=== PATIENT | female | born 1990 | race Asian ===

== ENCOUNTER 2021-09-05 01:50 | Inpatient (IN) ==
[2021-09-05] MEDS ORDERED: OXYTOCIN 30 UNITS/500 ML BAG IV PRN ×2 (04:33→23:24)
--- NOTE | 2021-09-05 04:37 | History & Physical Report ---
Date of Service September 05, 2021 Assessment & Plan (1) Insulin controlled gestational diabetes mellitus (GDM) during : (2) PROM (premature rupture of membranes): (3) with 38 completed weeks gestation: Plan: prom confirmed. Discussed expectant mangement vs. pitocin. cierra too frequently for cytotec. gbs neg. Plan pitocin, epidural on demand. Check sugars hourly for goal of 70-120. Fetus category one. Anticipate . History of Present Illness Chief Complaint: prom Primary Care Provider: NO PCP Patient is a 30yoIf, with iup at 38 4/7 weeks who presents to labor and delivery with c/o lof and woke up wet at 12:30. Feels her belly tightening but not painful. no vb. +fm. US at 36 weeks efw 29%, AC 33%. Patient is gdm on insulin. Last took insulin at 8pm. and Delivery Plans GDM on insulin *Wkly NSTs @32wks and Twice wkly @36wks *Serial growth US @28wks *Deliver by [facility] - IOL scheduled 09/11 flu shot 05/02/21- HK moderna x 2--last in october OB Labs: Blood Type O Positive 02/07/21 Antibody Screen NEGATIVE 02/07/21 Hemoglobin 10.9 g/dL (12.0-16.0) L 06/27/21 Hematocrit 32.7 % (37-47) L 06/27/21 Mean Corpuscular Volume 92.3 fL (80-100) 02/07/21 Platelet Count 303 K/uL (130-400) 02/07/21 Rubella IgG Antibody Immune (Immune) 02/07/21 Rapid Plasma Reagin Nonreactive (Nonreactive) 02/07/21 Hepatitis B Surface Antigen Neg (Neg) 02/07/21 HIV (1&2) Ab and P24 Ag, 4th Gener Neg (Neg) 02/07/21 Glucose 1 Hour 50 gm Load 153 mg/dl (70-130) H 04/04/21 OB Optional Labs: Chlamydia trachomatis RNA NOT DETECTED (NOT DETECTED) 02/07/21 Neisseria gonorrhoeae RNA NOT DETECTED (NOT DETECTED) 02/07/21 Labs Reviewed: cf/sma neg declines genetic screening [place] Allergies Allergy/AdvReac Type Severity Reaction Status Date / Time No Known Allergies Allergy Verified 08/30/21 10:20 Home Medications Medication Instructions Recorded Confirmed Type cholecalciferol (vitamin D3) PO 01/31/21 08/30/21 History mecobalamin (vitamin B12) PO 01/31/21 08/30/21 History prenat.vits,rocco,tiu-xipb-edsuy PO 01/31/21 08/30/21 History acetone (urine) test (Ketone Urine #50 ea 05/10/21 08/30/21 Rx Test) blood sugar diagnostic (OneTouch #150 ea 05/10/21 08/30/21 Rx Verio test strips) blood-glucose meter (OneTouch #1 ea 05/10/21 08/30/21 Rx Verio Flex meter) lancets 33 gauge (OneTouch Delica #150 ea 05/10/21 08/30/21 Rx Plus Lancet) insulin lispro 100 unit/mL 5 unit SUBCUT BID #15 ml 05/15/21 08/30/21 Rx subcutaneous pen (Humalog KwikPen (U-100) Insulin) pen needle, diabetic 32 gauge x #100 ea 05/15/21 08/30/21 Rx 5/32" (BD Ultra-Fine Codie Pen Needle) breast pump #1 ea 06/27/21 08/30/21 Rx breast pump #1 ea 06/27/21 08/30/21 Rx Patient History Surgical History H/O neck surgery Family History Mother Diabetes Benign-appearing endometrial cells on cervical Pap smear benign tumor on cervix per patient Father Diabetes Grandmother (Maternal) Brain tumor Denies family history of Ovarian cancer Prostate cancer Breast cancer Colorectal cancer Social History Smoking Status: Never smoker Second Hand Exposure: No; Hx Alcohol Use: No Hx Substance Use: No Preferred Language: Turkish Communication Ability: Effective Visual Impairment: No Limitations Hearing Ability: Normal 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 Beliefs That Will Affect Care: None marital status: marital status details: Frantz Napier (34) Current Living Situation: Spouse Current Living Situation Comment: lives with , no pets current occupational status: unemployed current occupation: student [employer] Feels Safe at Home: Yes Safety Concerns: Feels Safe At This Time OB History g1--present [employer] History noncontributory Physical Exam Constitutional: WD/WN, vitals as above Cardiovascular: Extremities: no calf tenderness and no edema Gastrointestinal (Abdomen): soft, nt, nd, gravid Psychiatric: A+Ox3, euthymic affect Genitourinary: sse--slight clear fluid, did not fern walked for an hour, notes continued leaking and has blood tinged soaked pad cx--2/50/-2 toco--q3-5min efm--130s with mod variability, accels to 160s, no decels Results & Data ([facility]) Vital Signs (Past 12 Hours) Vital Signs Temp Pulse Resp BP 09/05/21 03:09 37.0 C 16 09/05/21 02:20 37 C 77 109/74 09/05/21 02:10 77 109/74 Coding Level of Care Code None Diagnoses Insulin controlled gestational diabetes mellitus (GDM) during O24.414 PROM (premature rupture of membranes) O42.90 with 38 completed weeks gestation Z3A.38
[2021-09-05 05:08] LABS: Hematocrit (blood only) 36.8 % (37-47); Hemoglobin 12.2 g/dL (12.0-16.0); Mean Corpuscular Hemoglobin 30.3 pg (25-34); Mean Corpuscular Hgb Conc 33.2 g/dL (32-36); Mean Corpuscular Volume 91.3 fL (80-100); Platelet Count 208 K/uL (130-400); RDW Coefficient of Variation 13.4 % (11.5-14.5); RDW Standard Deviation 44.4 fL (36.4-46.3); Red Blood Count 4.03 M/uL (4.2-5.4); White Blood Count 12.73 K/uL (4.8-10.8)
[2021-09-05] MEDS: LACTATED RINGER'S 1,000 ML IV PRN ×3 (06:24→16:47)
[2021-09-05] MEDS: OXYTOCIN 30 UNITS/500 ML BAG IV PRN ×2 (06:25→22:42)
[2021-09-05] MEDS ORDERED: fentaNYL citrate 100 MCG/2 ML VIAL ONE (08:41)
[2021-09-05] MEDS ORDERED: BUPIVACAINE 0.25% 30 ML VIAL ONE (08:41)
[2021-09-05] MEDS ORDERED: ePHEDrine sulfate 50 MG/ML AMP ONE (08:41)
[2021-09-05] MEDS ORDERED: SODIUM CHLORIDE 0.9% INJ 10 ML VIAL ONE (08:41)
[2021-09-05] MEDS ORDERED: fentaNYL 2MCG/ML ROPIVACAINE 1.25MG/ML 100 ML BAG EPI ONE (08:42)
--- NOTE | 2021-09-05 09:02 | Anesthesiology Consultation ---
Date of Service September 05, 2021 Assessment & Plan (1) Encounter for pre-operative examination: Chart Review Chart Review: Acceptable Risk for Surgery and Patient NOT seen in Pre Admission Testing Consults Requested none History Height/Weight Weight: 60.328 kg Allergies Allergy/AdvReac Type Severity Reaction Status Date / Time No Known Allergies Allergy Verified 08/30/21 10:20 Medications Home Medications Medication Instructions Recorded Confirmed Last Taken cholecalciferol (vitamin D3) PO 01/31/21 08/30/21 09/04/21 20:00 mecobalamin (vitamin B12) PO 01/31/21 08/30/21 09/04/21 20:00 prenat.vits,rocco,ftl-ivxl-pcsrn PO 01/31/21 08/30/21 09/04/21 20:00 acetone (urine) test (Ketone Urine #50 ea 05/10/21 08/30/21 Unknown Test) blood sugar diagnostic (OneTouch #150 ea 05/10/21 08/30/21 Unknown Verio test strips) blood-glucose meter (OneTouch #1 ea 05/10/21 08/30/21 Unknown Verio Flex meter) lancets 33 gauge (OneTouch Delica #150 ea 05/10/21 08/30/21 Unknown Plus Lancet) insulin lispro 100 unit/mL 5 unit SUBCUT BID #15 ml 05/15/21 08/30/21 09/04/21 20:00 subcutaneous pen (Humalog KwikPen (U-100) Insulin) pen needle, diabetic 32 gauge x #100 ea 05/15/21 08/30/21 Unknown 5/32" (BD Ultra-Fine Codie Pen Needle) breast pump #1 ea 06/27/21 08/30/21 Unknown breast pump #1 ea 06/27/21 08/30/21 Unknown Active Medications Generic Name Dose Route Start Last Admin Trade Name Freq PRN Reason Stop Dose Admin Lactated Ringer's 1,000 mls @ 125 mls/hr 09/05/21 04:33 09/05/21 08:39 Lr IV 09/07/21 04:32 999 mls/hr .Q8H PRN Infusion L&D Protocol Protocol Oxytocin 30 units in 500 mls @ 7 mls/hr 09/05/21 04:33 09/05/21 08:05 Pitocin IV 09/07/21 04:32 0.42 units/hr .Q24H PRN 7 mls/hr Labor Induction/Augmentation Titration Protocol 0.42 UNITS/HR Past Family History Family History Mother Diabetes Benign-appearing endometrial cells on cervical Pap smear benign tumor on cervix per patient Father Diabetes Grandmother (Maternal) Brain tumor Denies family history of Ovarian cancer Prostate cancer Breast cancer Colorectal cancer Past Surgical History Surgical History H/O neck surgery Social History Smoking Status: Never smoker Hx Alcohol Use: No Hx Substance Use: No Physical Exam Vital Signs Last Vital Signs Temp 36.8 C 09/05/21 07:26 Pulse 80 09/05/21 08:08 Resp 20 09/05/21 07:26 BP 110/65 09/05/21 08:08 Testing Laboratory Results 09/05/21 04:53 09/05/21 09/05/21 09/05/21 07:32 06:31 05:00 POC Glucose 79 83 82
[2021-09-05] MEDS ORDERED: ePHEDrine sulfate 50 MG/ML AMP IV PRN (10:17)
[2021-09-05] MEDS ORDERED: fentaNYL 2MCG/ML ROPIVACAINE 1.25MG/ML 100 ML BAG EPI PRN (10:17)
[2021-09-05] MEDS ORDERED: ONDANSETRON INJ 2 MG/ML 2 ML VIAL IV PRN (10:17)
[2021-09-05] MEDS ORDERED: NALBUPHINE HCL INJ 10 MG/ML AMP IV PRN (10:17)
[2021-09-05] MEDS ORDERED: diphenhydrAMINE 50 MG/ML VIAL IV PRN (10:17)
[2021-09-05] MEDS ORDERED: NALOXONE HCL 0.4 MG/1 ML VIAL/CARP IV PRN (10:17)
[2021-09-05] MEDS ORDERED: NALOXONE HCL 1 MG in SODIUM CHLORIDE 0.9% 1000ML 1,000 ML IV PRN (10:17)
--- NOTE | 2021-09-05 14:46 | Labor Progress Brief Note ---
Date of Service September 05, 2021 Subjective Comfortable with epidural. FHT Cat 1 [place] Q 2 SVE 6-7/100/0 Continue labor, continue pitocin. Assessment & Plan Admission and Anticipated Discharge Date Admission Date: September 05, 2021 Results & Data ([facility]) Vital Signs (Past 12 Hours) Vital Signs Temp Pulse Resp BP Pulse Ox 09/05/21 14:40 66 98 09/05/21 14:35 78 98 09/05/21 14:33 69 112/66 09/05/21 14:30 86 98 09/05/21 14:25 69 97 09/05/21 14:20 76 98 09/05/21 14:18 69 110/70 09/05/21 14:15 69 98 09/05/21 14:10 67 98 09/05/21 14:08 36.8 C 20 09/05/21 14:05 68 98 09/05/21 14:03 74 107/59 L 09/05/21 14:00 66 98 09/05/21 13:55 76 98 09/05/21 13:50 70 20 98 09/05/21 13:48 59 L 111/64 09/05/21 13:45 74 98 09/05/21 13:40 64 98 09/05/21 13:35 86 20 99 09/05/21 13:33 62 108/59 L 09/05/21 13:30 70 97 09/05/21 13:25 67 97 09/05/21 13:20 67 20 97 09/05/21 13:17 73 102/60 09/05/21 13:15 69 97 09/05/21 13:10 67 97 09/05/21 13:05 69 20 97 09/05/21 13:03 72 101/55 L 09/05/21 13:00 63 98 09/05/21 12:55 72 98 09/05/21 12:50 66 20 99 09/05/21 12:48 69 100/57 L 09/05/21 12:45 66 100 09/05/21 12:40 65 99 09/05/21 12:35 79 20 99 09/05/21 12:34 64 106/61 09/05/21 12:30 70 98 09/05/21 12:25 74 98 09/05/21 12:20 79 20 97 09/05/21 12:18 80 111/61 09/05/21 12:15 75 98 09/05/21 12:10 72 98 09/05/21 12:05 36.5 C 70 20 104/72 98 09/05/21 12:00 68 98 09/05/21 11:55 76 98 09/05/21 11:50 72 98 09/05/21 11:48 68 111/68 09/05/21 11:45 66 97 09/05/21 11:40 70 20 97 09/05/21 11:35 79 97 09/05/21 11:34 77 106/55 L 09/05/21 11:30 79 97 09/05/21 11:25 70 20 97 09/05/21 11:20 69 97 09/05/21 11:18 81 104/61 09/05/21 11:15 70 97 09/05/21 11:10 69 20 98 09/05/21 11:05 87 97 09/05/21 11:04 71 113/67 09/05/21 11:00 65 97 09/05/21 10:55 70 20 98 09/05/21 10:50 66 107/66 98 09/05/21 10:45 76 99 09/05/21 10:40 87 20 98 09/05/21 10:35 60 98 09/05/21 10:32 89 92/52 L 09/05/21 10:30 81 98 09/05/21 10:25 71 20 97 09/05/21 10:20 59 L 98 09/05/21 10:19 57 L 102/55 L 09/05/21 10:15 88 97 09/05/21 10:10 67 20 97 09/05/21 10:05 72 98 09/05/21 10:01 81 117/56 L 09/05/21 10:00 82 97 09/05/21 09:55 89 20 107/58 L 97 09/05/21 09:53 82 99/53 L 09/05/21 09:50 86 107/63 97 09/05/21 09:48 77 107/64 09/05/21 09:47 36.7 C 78 20 116/65 09/05/21 09:45 101 H 108/66 98 09/05/21 09:42 81 123/70 09/05/21 09:40 84 116/69 98 01/19/22 09:39 87 122/72 09/05/21 09:37 82 141/80 H 09/05/21 09:35 84 98 09/05/21 09:30 77 99 09/05/21 09:26 81 112/70 09/05/21 09:25 79 99 09/05/21 08:08 80 110/65 09/05/21 07:26 36.8 C 20 09/05/21 07:08 87 113/70 09/05/21 06:30 37.1 C 16 09/05/21 05:46 79 120/76 09/05/21 03:09 37.0 C 16 Coding Level of Care Code None
[2021-09-05] MEDS ORDERED: SODIUM CHLORIDE 0.9% 1000ML 1,000 ML IV PRN (16:58)
[2021-09-05] MEDS ORDERED: INSULIN REGULAR 250 UNITS in SODIUM CHLORIDE 0.9% 247.5 ML IV PRN (16:58)
[2021-09-05] MEDS ORDERED: DEXTROSE 5% 1,000 ML IV PRN (16:58)
[2021-09-05] MEDS ORDERED: DEXTROSE 50% 50 ML SYRINGE IV PRN (16:58)
--- NOTE | 2021-09-05 22:58 | Delivery Summary ---
Vaginal Delivery Summary Date of Service September 05, 2021 Vaginal Delivery Summary and 1st Degree LAC Vaginal Delivery Summary: Pre-delivery diagnoses: 30yo @ 38 4/7, PROM, GDMA2, COVID+ Post-delivery diagnoses: same Procedure: spontaneous vaginal delivery, repair of 1st degree perineal laceration Surgeon: Jenny Cervantes DO Complications: none Findings: Viable male . Apgars and weight pending, please see nursery records. Estimated blood loss: 300ml Description of delivery: The patient progressed to complete with epidural anesthesia. She then began to push. She spontaneously vaginally delivered a viable from the cephalic presentation. The head delivered in MARISEL position. No nuchal cord. The anterior shoulder did not deliver immediately after restitution of head, therefore the patient was repositioned using McRobert's maneuver. The arms were noted to be crossed across 's upper chest, therefore the outermost arm was attempted to be delivered; this was unable to be accomplished, therefore patient was repositioned again using McRobert's, which allowed the anterior shoulder to slip easily out from under the pubic bone. The anterior shoulder delivered, followed by the posterior shoulder and crossed arms at once, followed by the body. The baby was placed on mother's abdomen and the cord was doubly clamped and cut. The baby was immediately handed over to waiting nursery team. A segment was retained for cord gases. Cord blood was obtained. The placenta was delivered spontaneously intact with a 3-vessel cord. The uterus and vagina were swept of clots and debris. IV pitocin was given. The uterus became firm. The cervix, vagina, and perineum were inspected and a 1st degree perineal laceration was noted and repaired with 3-0 vicryl in standard fashion. Excellent hemostasis was observed. The mother and baby are recovering in stable and good condition in the room. Sponge, needle and instrument counts were correct x 2. Jenny Cervantes DO [facility] Vaginal Delivery Charge Vaginal Delivery Codes: 89496 global code for the antepartum, delivery, and post- Delivery Type Details: and 1st Degree LAC
[2021-09-05] MEDS ORDERED: BENZOCAINE 20% AER SPR 82.5 GM CAN EXT PRN (23:24)
[2021-09-05] MEDS ORDERED: oxyCODONE/ACETAMINOPHEN 5mg/325mg TAB PO PRN (23:24)
[2021-09-05] MEDS ORDERED: DIPHTHERIA/TETANUS/PERTUSSIS 0.5 ML SYR/VIAL IM ONE (23:24)
[2021-09-05] MEDS ORDERED: HYDROCORTISONE ACETATE 25 MG SUPP PR PRN (23:24)
[2021-09-05] MEDS ORDERED: bisacodyL 10 MG SUPP PR PRN (23:24)
[2021-09-05] MEDS ORDERED: ACETAMINOPHEN 325 MG TAB PO PRN (23:24)
[2021-09-05] MEDS ORDERED: SUPERCREAM 0.870% 15 GM JAR EXT PRN (23:24)
[2021-09-06 00:50] LABS: Base Excess Cord Arterial Bld -5.9 mEq/L (-9-1.8); CO2 Cord Arterial Blood 56 mmHg (39.1-73.5); Cord Venous Blood HCO3 21 mmol/L (18.4-26.8); Cord Venous Blood PCO2 49 mmHg (30.4-57.2); Cord Venous Blood PO2 24 mmHg (14.1-43.3); Cord Venous Blood pH 7.26 (7.20-7.44); HCO3 Cord Arterial Blood 23 mmol/L (19.7-28.5); Oxygen Sat Cord Arterial Blood < 60.0 % (<60); PO2 Cord Arterial Blood 25 mmHg (4.1-31.7); pH Cord Arterial Blood 7.22 (7.1-7.38)
[2021-09-06 00:51] LABS: O2 Saturation Cord Venous Bld < 60.0 % (<68)
--- NOTE | 2021-09-06 00:56 | Anesthesia Procedure Note ---
Date of Service September 06, 2021 Anesthesia Post Epidural Note Vital Signs Vital Signs: Temp Pulse Resp BP Pulse Ox 37.2 C 98 H 18 119/67 98 09/05/21 22:30 09/06/21 00:47 09/06/21 00:30 09/06/21 00:47 09/05/21 23:40 Pain Intensity Abdomen: Pain Intensity: 6 Notes Mental Status: alert / awake / arousable and participated in evaluation Nausea / Vomiting: adequately controlled Pain: adequately controlled Airway Patency, RR, SpO2: stable & adequate BP & HR: stable & adequate Hydration State: stable & adequate Neuraxial Anesthesia: was administered and sensory block is resolving Anesthetic Complications: no major complications apparent and Pt Satisfied with anesthetic care Epidural: Removed without complications and With tip intact Notes: Epidural site clean, dry and intact. No signs of edema, erythema or bruising at insertion site. Pt instructed to request anesthesia if she has residual lower extremity numbness or if she develops lower extremity pain or weakness, back pain or headache.
[2021-09-06] MEDS: IBUPROFEN 600 MG TAB PO PRN ×3 (02:20→15:24)
[2021-09-06 06:43] LABS: Hemoglobin 11.2 g/dL (12.0-16.0); Mean Corpuscular Hgb Conc 32.9 g/dL (32-36); Mean Corpuscular Volume 91.2 fL (80-100); Mean Platelet Volume 11.3 fL (7.4-10.4); Platelet Count 201 K/uL (130-400); RDW Coefficient of Variation 13.3 % (11.5-14.5); RDW Standard Deviation 43.9 fL (36.4-46.3); Red Blood Count 3.73 M/uL (4.2-5.4); White Blood Count 23.11 K/uL (4.8-10.8)
--- NOTE | 2021-09-06 07:59 | Obstetrical Progress Note ---
Date of Service September 06, 2021 Assessment & Plan (1) Encounter for supervision of normal intrauterine in primigravida, antepartum: PPD1 doing well, ambulating well, urinating, eating/drinking. Minimal lochia. Feeling good. No complaints of difficulty breathing/shortness of breath/ chest pain. Plans to breastfeed, has not yet really started trying this - will plan to work with RN today. Discussed ambulation, PO fluids. Anticipate DC home tomorrow. Subjective Ambulation: ambulating normally Voiding: no voiding problems Diet Tolerance:: regular diet Lochia:: Moderate Review of Systems All systems reviewed & are unremarkable except as noted in HPI & below Physical Exam Constitutional WD/WN, vitals as above no acute distress Respiratory normal respiratory effort Cardiovascular Rate/Rhythm: regular rate and regular rhythm Gastrointestinal (Abdomen) Inspection/Auscultation: abdomen normal to inspection; abdomen not distended Percussion/Palpation: abdomen soft Genitourinary OB Exam Abdomen: + fundal height Fundus: + firm; not tender Results & Data ([facility]) Vital Signs (Past 12 Hours) Vital Signs Temp Pulse Pulse Resp BP BP Pulse Ox 09/06/21 02:30 37.0 C 99 H 16 102/68 97 09/06/21 00:47 98 H 119/67 09/06/21 00:32 90 110/62 09/06/21 00:30 18 09/06/21 00:17 94 H 105/58 L 09/06/21 00:02 108 H 110/68 09/06/21 00:00 18 09/05/21 23:47 71 127/70 09/05/21 23:40 59 L 98 09/05/21 23:35 67 98 09/05/21 23:32 60 141/76 H 09/05/21 23:30 71 18 99 09/05/21 23:25 70 99 09/05/21 23:20 60 100 09/05/21 23:17 59 L 138/74 09/05/21 23:15 59 L 18 100 09/05/21 23:10 72 100 09/05/21 23:05 61 100 09/05/21 23:02 73 130/69 09/05/21 23:00 78 18 100 09/05/21 22:55 74 100 09/05/21 22:50 67 100 09/05/21 22:47 72 131/68 01/19/22 22:45 72 18 100 09/05/21 22:40 78 100 09/05/21 22:35 79 99 09/05/21 22:32 80 117/62 09/05/21 22:30 37.2 C 85 18 98 09/05/21 22:25 79 98 09/05/21 22:20 93 H 97 09/05/21 22:17 101 H 115/66 09/05/21 22:15 99 H 98 09/05/21 22:12 18 09/05/21 22:10 126 H 99 09/05/21 22:05 112 H 96 09/05/21 22:02 86 123/72 09/05/21 22:00 37.4 C 83 18 98 09/05/21 21:55 89 98 09/05/21 21:50 115 H 93 09/05/21 21:45 115 H 97 09/05/21 21:40 104 H 98 09/05/21 21:35 102 H 98 09/05/21 21:32 103 H 121/69 09/05/21 21:30 105 H 10 L 98 09/05/21 21:25 154 H 96 09/05/21 21:20 107 H 98 09/05/21 21:18 127 H 120/67 09/05/21 21:15 138 H 99 09/05/21 21:10 121 H 95 09/05/21 21:05 78 98 09/05/21 21:03 80 169/89 H 09/05/21 21:00 37.3 C 71 98 09/05/21 20:55 76 98 09/05/21 20:50 79 99 09/05/21 20:49 70 139/78 09/05/21 20:45 79 98 09/05/21 20:40 68 98 09/05/21 20:35 70 98 09/05/21 20:33 76 152/72 H 09/05/21 20:30 66 98 09/05/21 20:25 68 99 09/05/21 20:20 83 98 09/05/21 20:18 37.2 C 75 125/73 09/05/21 20:15 72 96 09/05/21 20:10 68 97 09/05/21 20:05 72 98 09/05/21 20:03 67 128/68 09/05/21 20:00 65 18 97
[2021-09-06] MEDS: PRENATAL VITAMIN 1 TAB PO SCH (08:54)
[2021-09-06] MEDS: DOCUSATE SODIUM 100 MG CAP PO SCH ×2 (08:54→21:50)
[2021-09-06] MEDS ORDERED: bisacodyL 5 MG TABEC PO SCH (20:00)
[2021-09-07] MEDS: IBUPROFEN 600 MG TAB PO PRN ×2 (02:00→09:11)
[2021-09-07] MEDS: PRENATAL VITAMIN 1 TAB PO SCH (09:11)
[2021-09-07] MEDS: DOCUSATE SODIUM 100 MG CAP PO SCH (09:11)
--- NOTE | 2021-09-07 10:08 | Obstetrical Progress Note ---
Date of Service September 07, 2021 Assessment & Plan (1) Encounter for care and examination after delivery: satisfactory progress will D/C to home follow up in 6 weeks. Subjective Ambulation: ambulating normally Voiding: no voiding problems Passing Gas:: Yes Diet Tolerance:: regular diet Lochia:: Small Feeding Type:: breast feeding doing well- no SOB or cough. . taking motrin for cramping Review of Systems All systems reviewed & are unremarkable except as noted in HPI & below Physical Exam Constitutional WD/WN, vitals as above Psychiatric A+Ox3, euthymic affect Genitourinary OB Exam Abdomen: + fundal height Fundus: + firm and + relation to umbilicus (2 below U) Results & Data ([facility]) Vital Signs (Past 12 Hours) Vital Signs Temp Pulse Resp BP Pulse Ox 09/07/21 08:00 98.2 F 78 18 122/81 98 09/07/21 01:45 97.7 F 94 H 18 118/78 98 09/06/21 23:05 97.5 F L 110 H 18 123/85 98
== END 2021-09-07 16:25 | disposition home or self-care (01) | DRG 805 ==
LOC: OPB 01:50 → 4S1 01:54 → 4W 05:37 → 3E 09-06 01:54